=== PATIENT | female | born 1960 | race Caucasian/White ===

== ENCOUNTER 2024-05-26 08:27 | Outpatient (CLI) | payer BC | END 2024-05-26 23:59 | disposition home or self-care (01) | LOC: MRI 08:27 | PROVIDERS: ATTEND Nurse Practitioner Adult Health | DX: M47.27 Other spondylosis with radiculopathy, lumbosacral region (principal); M43.17 Spondylolisthesis, lumbosacral region; M48.07 Spinal stenosis, lumbosacral region; M51.17 Intervertebral disc disorders with radiculopathy, lumbosacral region; M25.78 Osteophyte, vertebrae; M47.22 Other spondylosis with radiculopathy, cervical region; M48.02 Spinal stenosis, cervical region; M50.123 Cervical disc disorder at C6-C7 level with radiculopathy; M54.50 Low back pain, unspecified | CPT/HCPCS: 72141; 72148 ==